=== PATIENT | female | born 1975 | race Caucasian/White ===

== ENCOUNTER 2017-09-14 07:57 | Outpatient (RCR) | payer OTHER | END 2017-12-13 | disposition home or self-care (01) | LOC: CARD 07:57 | PROVIDERS: ATTEND Nurse Practitioner | DX: R00.2 Palpitations (principal) | CPT/HCPCS: 93225; 93226 ==

== ENCOUNTER → 2019-03-03 | Outpatient (CLI) | payer BC ==
[~2019-03-03] MED LIST: HOLD METFORMIN - RECEIVED CONTRAST 20 ML VIAL IV SCH; IOHEXOL 350 MG/ML 100 ML (OMNIPAQUE 350) VIAL IV ONE
--- NOTE | 2019-03-03 19:17 | Diagnostic Imaging Report ---
INDICATION: Ankle swelling. COMPARISON: None available. TECHNIQUE: Three radiographs of the left ankle dated March 03, 2019. FINDINGS: No acute fracture or dislocation. No destructive osseous process. The talar dome is unremarkable. Ankle mortise is symmetric. Mild soft tissue swelling about the ankle, particularly medially. No suspicious radiopaque foreign body. IMPRESSION: No acute osseous abnormality with mild soft tissue swelling about the ankle, particularly medially. Dictated by: Dictated on workstation # [id number]
== END ==
LOC: RAD 14:39
PROVIDERS: ATTEND Physician Assistant
DX: M25.472 Effusion, left ankle (principal)
CPT/HCPCS: 73610

== ENCOUNTER → 2019-03-03 | Outpatient (CLI) | payer BC, OTHER ==
[~2019-03-03] MED LIST changes: -IOHEXOL 350 MG/ML 100 ML (OMNIPAQUE 350) VIAL IV ONE
--- NOTE | 2019-03-03 15:46 | Diagnostic Imaging Report ---
INDICATION: Bilateral leg pain. Bilateral lower extremity venous Doppler study was performed in the routine fashion with color flow Doppler and waveform analysis. FINDINGS: The common femoral veins, superficial femoral veins, popliteal veins and visualized portion of the tibial veins show normal compressibility and venous flow patterns. There is normal augmentation. IMPRESSION: No evidence of deep vein thrombosis in the major veins of both legs. Dictated by: Dictated on workstation # [id number]
[2019-03-03] MEDS: IOHEXOL 350 MG/ML 100 ML (OMNIPAQUE 350) VIAL IV ONE (15:52)
--- NOTE | 2019-03-03 19:47 | Diagnostic Imaging Report ---
INDICATION: Lower extremity swelling and pain. TECHNIQUE: CTA of the abdomen and pelvis obtained with IV contrast bolus and axial slices as well as delayed images, with sagittal and coronal and MIP reconstructions. FINDINGS: Visualized portions of the lung bases are clear. There are no pleural fluid collections. There is no free intraperitoneal air. The liver shows no focal lesions. Gallbladder is absent. Spleen, adrenals, and pancreas appear normal. The kidneys bilaterally are unremarkable. There is no retroperitoneal mass or adenopathy. There is no ascites or abnormal fluid collection. Visualized bowel loops show uncomplicated colonic diverticula. There is no pelvic mass or free fluid. CTA images demonstrate the abdominal aorta to be patent and normal in caliber and appearance. The celiac trunk, SMA, and renal arteries are patent and without stenosis. The inferior mesenteric artery is patent. The common iliac arteries, internal iliac arteries, and external iliac arteries are patent and normal in caliber. The common femoral arteries are normal. Delayed views demonstrate no overt filling defects in the IVC or common or external iliac veins. IMPRESSION: CT angiography of the abdomen and pelvis demonstrates a normal appearance of the aorta and iliac vessels and major branches with no stenosis or significant plaquing. Delayed views show no overt venous thrombus. There is no abdominal mass or abnormal fluid collection visualized. There are uncomplicated colonic diverticula. The patient has had prior cholecystectomy. Dictated by: Dictated on workstation # [id number]
--- NOTE | 2019-03-03 19:53 | Diagnostic Imaging Report ---
INDICATION: Bilateral lower extremity cyanosis. Ankle-brachial indices were performed. Ankle-brachial index on the right side is 1.22 for the posterior tibial and 1.14 for the dorsalis pedis. Ankle-brachial index on the left side is 0.99 for the posterior tibial and 1.09 for dorsalis pedis. Waveforms at the ankles were normal and symmetric. IMPRESSION: Unremarkable ankle-brachial indices. Dictated by: Dictated on workstation # [id number]
== END ==
LOC: RAD 14:26
PROVIDERS: ATTEND Physician Assistant
DX: M79.89 Other specified soft tissue disorders (principal); K57.30 Diverticulosis of large intestine without perforation or abscess without bleeding; R23.0 Cyanosis; Z90.49 Acquired absence of other specified parts of digestive tract
CPT/HCPCS: 74174; 93922; 93970

== ENCOUNTER → 2019-05-18 | Outpatient (CLI) | payer BC ==
--- NOTE | 2019-05-18 16:36 | Diagnostic Imaging Report ---
INDICATION: Knee pain. COMPARISON: None. FINDINGS: Three views of the right knee joint demonstrate no acute fracture or dislocation. No focal osseous lesions are seen. No significant joint effusion is seen. The surrounding soft tissue structures are unremarkable. Mild osteoarthritic changes are noted. There are no radiopaque foreign bodies. IMPRESSION: 1. No acute fractures or dislocations of the right knee joint. Dictated by: Dictated on workstation # [id number]
== END ==
LOC: RAD 16:04
PROVIDERS: ATTEND Physician Assistant
DX: M25.561 Pain in right knee (principal)
CPT/HCPCS: 73562

== ENCOUNTER → 2019-06-06 | Outpatient (CLI) | payer BC ==
--- NOTE | 2019-06-06 09:09 | Diagnostic Imaging Report ---
MRI RT LOWER EXT JOINT W/O TECHNIQUE: Multiplanar, multisequence MR imaging of the right knee was performed without contrast. COMPARISON: Right knee radiographs of 05/18/2019 INDICATION: Right knee pain. FINDINGS: MENISCI Medial meniscus: Normal. Lateral meniscus: Complex tearing of the free edge of the medial meniscus. There is potential bucket-handle type displacement of the free edge into the intercondylar notch. The body of the lateral meniscus is partially extruded into the lateral gutter. LIGAMENTS ACL: Intact. PCL: Intact. MCL: Intact. LCL: The lateral collateral ligamentous complex is intact. EXTENSOR MECHANISM The extensor mechanism is intact. CARTILAGE Medial compartment: Medial compartment articular cartilage is well preserved without focal high-grade chondromalacia. Lateral compartment: Broad regions of partial-thickness chondral thinning and fibrillation throughout the weightbearing aspect of the lateral compartment. In the posterior nonweightbearing aspect there is a subchondral focus of bone marrow edema. Patellofemoral compartment: Broad region of full-thickness articular cartilage loss in the lateral patellar facet and involving the patellar apex. BONE No fracture, stress fracture or osteonecrosis. SOFT TISSUE Small knee joint effusion. No Cunningham's cyst. IMPRESSION: 1. Complex tear in the lateral meniscus may include an unstable free edge fragment displaced into the intercondylar notch. 2. Degenerative articular cartilage loss is greatest in the lateral and patellofemoral compartments. 3. Cruciate and collateral ligaments are intact. Dictated by: Dictated on workstation # [id number]
== END ==
LOC: RAD 07:56
PROVIDERS: ATTEND Physician Assistant
DX: S83.281A Other tear of lateral meniscus, current injury, right knee, initial encounter (principal)
CPT/HCPCS: 73721

== ENCOUNTER → 2019-07-18 | Outpatient (CLI) | payer BC ==
--- NOTE | 2019-07-18 12:30 | Diagnostic Imaging Report ---
INDICATION: Routine screening. Comparison is made with prior mammogram from 05/28/2016. 2-D and 3-D bilateral screening mammography was performed. The current study was also evaluated with a Computer Aided Detection (CAD) system. 3-D tomosynthesis was also performed and reviewed. FINDINGS: Scattered fibroglandular densities are identified bilaterally. The parenchymal pattern is stable. No mass or malignant-appearing microcalcifications are seen. The axillae are unremarkable. IMPRESSION: No mammographic features suspicious for malignancy are identified. ACR BI-RADS Category 1: Negative. Result letter will be mailed to the patient. Note: At least 10% of breast cancer is not imaged by mammography. Dictated by: Dictated on workstation # [id number]
== END ==
LOC: RAD 08:56
PROVIDERS: ATTEND Nurse Practitioner
DX: Z12.31 Encounter for screening mammogram for malignant neoplasm of breast (principal)
CPT/HCPCS: 77067

== ENCOUNTER → 2020-12-25 | Outpatient (CLI) | payer BC | LOC: LABNPT 05:53 | PROVIDERS: ATTEND Internal Medicine | DX: R50.9 Fever, unspecified (principal); R09.81 Nasal congestion ==

== ENCOUNTER → 2022-01-30 | Outpatient (CLI) | payer BC, OTHER ==
--- NOTE | 2022-01-30 16:34 | Diagnostic Imaging Report ---
EXAMINATION: US Lower Extremity Venous Duplex Left. TECHNIQUE: Multiple real-time grayscale images were obtained over the left lower extremity in various projections. Additional spectral analysis and color Doppler duplex images were also obtained. HISTORY: Left lower extremity swelling. COMPARISON: 03/03/2019. FINDINGS: The left common femoral vein, deep femoral vein, superficial femoral vein and popliteal vein are patent with normal alatorre scale and doppler appearance. There is normal respiratory variation and augmentation. IMPRESSION: 1. No DVT of the left lower extremity. Dictated by: Dictated on workstation # [id number]
== END ==
LOC: RAD 15:30
PROVIDERS: ATTEND Internal Medicine
DX: R60.0 Localized edema (principal); M79.89 Other specified soft tissue disorders

== ENCOUNTER → 2022-09-05 | Outpatient (CLI) | payer OTHER ==
--- NOTE | 2022-09-08 09:34 | Diagnostic Imaging Report ---
INDICATION: Routine screening. COMPARISON: 07/18/2019 and 05/28/2016. TECHNIQUE: 2D and 3D bilateral screening mammography was performed with CAD. FINDINGS: Scattered fibroglandular densities are identified bilaterally. The parenchymal pattern is stable. No mass or malignant-appearing microcalcifications are seen. The axillae are unremarkable. IMPRESSION: No mammographic features suspicious for malignancy are identified. ACR BI-RADS Category 1: Negative. Result letter will be mailed to the patient. Note: At least 10% of breast cancer is not imaged by mammography. Dictated by: Dictated on workstation # [id number]
== END ==
LOC: RAD 15:15
PROVIDERS: ATTEND Surgery
DX: Z12.31 Encounter for screening mammogram for malignant neoplasm of breast (principal)
CPT/HCPCS: 77063; 77067